=== PATIENT | male | born 1975 | race Caucasian/White ===

== ENCOUNTER 2021-09-21 18:20 | Emergency (ER) | payer BC ==
--- NOTE | 2021-09-21 19:01 | EDM.PDOC ---
ED HPI GENERAL MEDICAL PROBLEM - General Chief Complaint: Respiratory Problem Stated Complaint: COVID+/SOB Time Seen by Provider: 09/21/21 19:13 - History of Present Illness INITIAL COMMENTS - FREE TEXT/NARRATIVE: 45-year-old male presents to the emergency room with Covid-like symptoms. He has been symptomatic for 10 or 11 days. He has been tested positive. He had some initial loose stools, altered taste and smell. Never really had any shortness of breath with this. He has some generalized aches and achiness. He is quite fatigued. Mild fevers but this seems to have resolved. Headache Pain Score (Numeric/FACES): 3 - Related Data Allergies Allergy/AdvReac Type Severity Reaction Status Date / Time No Known Allergies Allergy Verified 09/21/21 18:58 Home Meds: Home Meds . [No Known Home Meds] 07/08/16 [History] Past Medical History - Past Surgical History GI Surgical History: Reports: Hernia, Inguinal ED ROS GENERAL - Review of Systems Review Of Systems: See Below Constitutional: Reports: No Symptoms, Fever, Chills HEENT: Reports: No Symptoms. Denies: Other Respiratory: Reports: Cough. Denies: Sputum Cardiovascular: Reports: No Symptoms Endocrine: Reports: No Symptoms GI/Abdominal: Reports: Diarrhea, Decreased Appetite Musculoskeletal: Reports: Other (Generalized achiness) Skin: Reports: No Symptoms Neurological: Reports: No Symptoms ED EXAM, GENERAL - Physical Exam Exam: See Below Exam Limited By: No Limitations General Appearance: Alert, No Apparent Distress Eye Exam: Bilateral Eye: Normal Inspection Ears: Normal External Exam, Normal Canal, Hearing Grossly Normal, Normal TMs Nose: Normal Inspection, Normal Mucosa, No Blood Throat/Mouth: Normal Inspection, Normal Lips, Normal Teeth, Normal Gums, Normal Oropharynx, Normal Voice, No Airway Compromise Neck: Normal Inspection, Supple, Non-Tender, Full Range of Motion Respiratory/Chest: No Respiratory Distress, Lungs Clear, Normal Breath Sounds, No Accessory Muscle Use, Chest Non-Tender Cardiovascular: Regular Rate, Rhythm, No Edema, No Murmur GI/Abdominal: Normal Bowel Sounds, Soft, Non-Tender Back Exam: Normal Inspection. No: CVA Tenderness (L), CVA Tenderness (R) Extremities: Normal Inspection, No Pedal Edema Neurological: Alert, Oriented, Normal Cognition Course - Vital Signs Last Recorded V/S: Last Vital Signs Temp 37.0 C 09/21/21 18:45 Pulse 72 09/21/21 18:45 Resp 18 09/21/21 18:45 BP 123/76 09/21/21 18:45 Pulse Ox 95 09/21/21 18:45 - Orders/Labs/Meds Orders: Active Orders 24 hr Category Date Time Status Chest 1V Frontal [CR] Stat Exams 09/21/21 19:33 Taken Labs: Laboratory Tests 09/21/21 09/21/21 09/21/21 Range/Units 20:02 20:02 20:02 WBC (4.23-9.07) K/mm3 RBC (4.63-6.08) M/mm3 Hgb (13.7-17.5) gm/dl Hct (40.1-51.0) % MCV (79.0-92.2) fl MCH (25.7-32.2) pg MCHC (32.2-35.5) g/dl RDW Std Deviation (35.1-43.9) fL Plt Count (163-337) K/mm3 MPV (9.4-12.3) fl Neut % (Auto) (34.0-67.9) % Lymph % (Auto) (21.8-53.1) % [place] % (Auto) (5.3-12.2) % Eos % (Auto) (0.8-7.0) Baso % (Auto) (0.1-1.2) % Neut # (Auto) (1.78-5.38) K/mm3 Lymph # (Auto) (1.32-3.57) K/mm3 [place] # (Auto) (0.30-0.82) K/mm3 Eos # (Auto) (0.04-0.54) K/mm3 Baso # (Auto) (0.01-0.08) K/mm3 Manual Slide Review D-Dimer, Quantitative 1.07 H (0.19-0.50) mg/L Sodium 137 (136-145) mEq/L Potassium 4.0 (3.5-5.1) mEq/L Chloride 101 (98-107) mEq/L Carbon Dioxide 28 (21-32) mEq/L Anion Gap 12.0 (5-15) BUN 12 (7-18) mg/dL Creatinine 1.0 (0.7-1.3) mg/dL Est Cr Clr Drug Dosing 109.60 mL/min Estimated GFR (MDRD) > 60 (>60) mL/min BUN/Creatinine Ratio 12.0 L (14-18) Glucose 112 H (70-99) mg/dL Calcium 8.6 (8.5-10.1) mg/dL Ferritin 594 H (26-388) ng/ml Total Bilirubin 0.5 (0.2-1.0) mg/dL AST 66 H (15-37) U/L ALT 80 H (16-63) U/L Alkaline Phosphatase 175 H (46-116) U/L Lactate Dehydrogenase 278 H (85-227) U/L C-Reactive Protein 0.8 (<1.0) mg/dL Total Protein 7.8 (6.4-8.2) g/dl Albumin 3.5 (3.4-5.0) g/dl Globulin 4.3 gm/dL Albumin/Globulin Ratio 0.8 L (1-2) 09/21/21 Range/Units 20:02 WBC 5.14 (4.23-9.07) K/mm3 RBC 4.52 L (4.63-6.08) M/mm3 Hgb 14.3 (13.7-17.5) gm/dl Hct 42.6 (40.1-51.0) % MCV 94.2 H D (79.0-92.2) fl MCH 31.6 (25.7-32.2) pg MCHC 33.6 (32.2-35.5) g/dl RDW Std Deviation 43.0 (35.1-43.9) fL Plt Count 209 D (163-337) K/mm3 MPV 11.0 (9.4-12.3) fl Neut % (Auto) 68.4 H (34.0-67.9) % Lymph % (Auto) 17.7 L (21.8-53.1) % [place] % (Auto) 12.1 (5.3-12.2) % Eos % (Auto) 1.2 (0.8-7.0) Baso % (Auto) 0.4 (0.1-1.2) % Neut # (Auto) 3.52 (1.78-5.38) K/mm3 Lymph # (Auto) 0.91 L (1.32-3.57) K/mm3 [place] # (Auto) 0.62 (0.30-0.82) K/mm3 Eos # (Auto) 0.06 (0.04-0.54) K/mm3 Baso # (Auto) 0.02 (0.01-0.08) K/mm3 Manual Slide Review Normal smear D-Dimer, Quantitative (0.19-0.50) mg/L Sodium (136-145) mEq/L Potassium (3.5-5.1) mEq/L Chloride (98-107) mEq/L Carbon Dioxide (21-32) mEq/L Anion Gap (5-15) BUN (7-18) mg/dL Creatinine (0.7-1.3) mg/dL Est Cr Clr Drug Dosing mL/min Estimated GFR (MDRD) (>60) mL/min BUN/Creatinine Ratio (14-18) Glucose (70-99) mg/dL Calcium (8.5-10.1) mg/dL Ferritin (26-388) ng/ml Total Bilirubin (0.2-1.0) mg/dL AST (15-37) U/L ALT (16-63) U/L Alkaline Phosphatase (46-116) U/L Lactate Dehydrogenase (85-227) U/L C-Reactive Protein (<1.0) mg/dL Total Protein (6.4-8.2) g/dl Albumin (3.4-5.0) g/dl Globulin gm/dL Albumin/Globulin Ratio (1-2) - Re-Assessments/Exams Free Text/Narrative Re-Assessment/Exam: 09/21/21 21:43 Labs minimal abnormality chest x-ray is essentially normal. He is beyond the window for monoclonal antibody therapy he has has an irritating cough that keeps him up at night we will give some Robitussin AC from the machine out in the waiting room 120 cc 5 cc every 6 hours as needed. Departure - Departure Time of Disposition: 21:44 Disposition: Home, Self-Care 01 Clinical Impression: COVID-19 - Discharge Information Referrals: Lewis Kearney MD [Primary Care Provider] - Forms: ED Department Discharge Additional Instructions: Return to the emergency room with any questions problems or worsening symptoms. Over time your sense of smell and taste should normalize. Tylenol for discomfort. From the machine out in the waiting room I gave you a prescription for Robitussin with codeine take 5 cc every 6 hours as needed to help suppress your coughs he can get some rest at night only. Follow-up with your regular healthcare provider in 1 week if needed. Sepsis Event Note (ED) - Focused Exam Vital Signs: Vital Signs Temp Pulse Resp BP Pulse Ox 09/21/21 18:45 37.0 C 72 18 123/76 95 - My Orders Last 24 Hours: My Active Orders 09/21/21 19:33 Chest 1V Frontal [CR] Stat - Assessment/Plan Last 24 Hours: My Active Orders 09/21/21 19:33 Chest 1V Frontal [CR] Stat
[2021-09-21 19:07] VITALS: BP 123/76; PULSE 72
--- NOTE | 2021-09-22 07:45 | CR ---
Chest: Portable view of the chest was obtained. Comparison: No prior chest imaging is available. Mild patchy areas of increased density are seen on both sides of the chest. Heart size and mediastinum are normal. Bony structure show mild scoliosis within the spine. Impression: 1. Findings suspicious for mild COVID pneumonia. Diagnostic code #3
== END 2021-09-21 22:35 | disposition home or self-care (01) ==
LOC: JD.ED 18:20
DX: U07.1 COVID-19 (principal)
CPT/HCPCS: 36415; 71045; 71045-26; 80053; 82728; 83615; 85025; 85379; 86140; 99283-25